=== PATIENT | male | born 1990 | race Caucasian/White ===

== ENCOUNTER 2017-12-05 22:45 | Emergency (ER) | payer SELFPAY ==
[2017-12-05 22:58] VITALS: BP 131/72
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
--- NOTE | 2017-12-08 09:45 | CR ---
Right hip: AP and frog-leg lateral views of the right hip were obtained. Comparison: No previous study. Old orthopedic hardware defect is seen within the right hip. Mild joint space narrowing is seen within the superior right hip. No fracture or other bony abnormality is seen. Impression: 1. Old orthopedic hardware defect within the right hip. 2. Mild joint space narrowing superiorly within the right hip. Diagnostic code #2
== END 2017-12-06 01:03 | disposition home or self-care (01) ==
LOC: JD.ED 22:45
DX: M25.551 Pain in right hip (principal); F17.210 Nicotine dependence, cigarettes, uncomplicated; Z88.0 Allergy status to penicillin; Z88.2 Allergy status to sulfonamides; Z76.5 Malingerer [conscious simulation]; Z98.890 Other specified postprocedural states
CPT/HCPCS: 73502-26-RT; 73502-RT; 99283; 99284

== ENCOUNTER 2018-10-05 14:03 | Emergency (ER) | payer SELFPAY ==
[2018-10-05 14:25] VITALS: BP 137/77
--- NOTE | 2018-10-05 15:18 | EDM.PDOC ---
ED HPI GENERAL MEDICAL PROBLEM - General Chief Complaint: Back Pain or Injury Stated Complaint: LOWER BACK PAIN Time Seen by Provider: 10/05/18 14:55 Source of Information: Reports: Other History Limitations: Reports: Other - History of Present Illness INITIAL COMMENTS - FREE TEXT/NARRATIVE: Went to see the patient. Patient had left prior to being evaluated. 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) tramadol Allergy Seizure Verified 10/05/18 14:26 Home Meds: Home Meds FLUoxetine [PROzac] 20 mg PO DAILY 10/05/18 [History] Past Medical History - Past Health History Medical/Surgical History: Denies Medical/Surgical History HEENT History: Reports: None Cardiovascular History: Reports: None Respiratory History: Reports: None Gastrointestinal History: Reports: None Genitourinary History: Reports: None Musculoskeletal History: Reports: Fracture Other Musculoskeletal History: right hip Neurological History: Reports: None Psychiatric History: Reports: None, Depression Endocrine/Metabolic History: Reports: None Hematologic History: Reports: None Immunologic History: Reports: None Oncologic (Cancer) History: Reports: None Dermatologic History: Reports: None - Infectious Disease History Infectious Disease History: Reports: None - Past Surgical History Head Surgeries/Procedures: Reports: None Other HEENT Surgeries/Procedures: strabismus surgery x 2 Social & Family History - Family History Family Medical History: Noncontributory - Tobacco Use Smoking Status *Q: Current Every Day Smoker Years of Tobacco use: 10 Packs/Tins Daily: 0.5 - Caffeine Use Caffeine Use: Reports: Coffee, Energy Drinks Other Caffeine Use: freq energy drinks - Recreational Drug Use Recreational Drug Use: No - Living Situation & Occupation Living situation: Reports: Single, Alone Occupation: Employed (To start [employer] on 12/08/17) ED ROS GENERAL - Review of Systems Review Of Systems: Unable To Obtain ED EXAM,LOWER BACK PAIN/INJURY - Physical Exam Exam: Not Obtained Course - Vital Signs Last Recorded V/S: Last Vital Signs Temp 98.7 F 10/05/18 14:24 Pulse 85 10/05/18 14:24 Resp 20 10/05/18 14:24 BP 137/77 10/05/18 14:24 Pulse Ox 100 10/05/18 14:24 - Re-Assessments/Exams Free Text/Narrative Re-Assessment/Exam: Patient left prior to being evaluated. Departure - Departure Time of Disposition: 14:58 Disposition: Left Without Being Seen 07 Clinical Impression: Back pain Qualifiers: Back pain location: back pain in unspecified location Chronicity: unspecified Back pain laterality: unspecified Qualified Code(s): M54.9 - Dorsalgia, unspecified - Discharge Information Referrals: PCP,None [Primary Care Provider] - Forms: ED Department Discharge
== END 2018-10-05 14:55 | disposition left against medical advice (07) ==
LOC: JD.ED 14:03
DX: M54.5 Low back pain (principal); Z53.21 Procedure and treatment not carried out due to patient leaving prior to being seen by health care provider; F17.210 Nicotine dependence, cigarettes, uncomplicated; Z88.0 Allergy status to penicillin; Z88.2 Allergy status to sulfonamides; Z88.6 Allergy status to analgesic agent; Z79.899 Other long term (current) drug therapy

== ENCOUNTER 2018-10-10 06:10 | Emergency (ER) | payer SELFPAY ==
[2018-10-10 06:18] VITALS: BP 144/80
--- NOTE | 2018-10-10 06:47 | EDM.PDOC ---
ED HPI GENERAL MEDICAL PROBLEM - General Chief Complaint: Back Pain or Injury Stated Complaint: BACK PAIN Time Seen by Provider: 10/10/18 06:11 Source of Information: Reports: Patient History Limitations: Reports: No Limitations - History of Present Illness INITIAL COMMENTS - FREE TEXT/NARRATIVE: Is a 28-year-old male. 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 He was here 5 days ago for back pain but states he got a call about his father who and he had to leave without being seen. He comes back today because he still having problems with his lower back. He says his back will come to grab him at times. He says he has never hurt his back in the past he has no pain down his legs he has no numbness tingling in his toes. He feels like his back is tense and tight been taking Tylenol and ibuprofen but it hasn't helped. He says he sits at work mostly and that aggravates it. He denies any other acute symptoms. 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, NSAIDS Lower Back Pain Score (Numeric/FACES): 7 - Related Data Allergies Allergy/AdvReac Type Severity Reaction Status Date / Time naproxen Allergy Hives Verified 10/10/18 06:22 Penicillins Allergy Anaphylactic Verified 10/10/18 06:22 Shock Sulfa (Sulfonamide Allergy Hives Verified 10/10/18 06:22 Antibiotics) tramadol Allergy Seizure Verified 10/10/18 06:22 Home Meds: Home Meds FLUoxetine [PROzac] 20 mg PO DAILY 10/05/18 [History] tiZANidine [Zanaflex] 4 mg PO Q6H PRN #20 tab 10/10/18 [Rx] Past Medical History - Past Health History Medical/Surgical History: Denies Medical/Surgical History HEENT History: Reports: None Cardiovascular History: Reports: None Respiratory History: Reports: None Gastrointestinal History: Reports: None Genitourinary History: Reports: None Musculoskeletal History: Reports: Fracture Other Musculoskeletal History: right hip Neurological History: Reports: None Psychiatric History: Reports: Depression Endocrine/Metabolic History: Reports: None Hematologic History: Reports: None Immunologic History: Reports: None Oncologic (Cancer) History: Reports: None Dermatologic History: Reports: None - Infectious Disease History Infectious Disease History: Reports: None - Past Surgical History Head Surgeries/Procedures: Reports: None Other HEENT Surgeries/Procedures: strabismus surgery x 2 Musculoskeletal Surgical History: Reports: Other (See Below) Other Musculoskeletal Surgeries/Procedures:: right hip and hand surgeries Social & Family History - Family History Family Medical History: Noncontributory - Tobacco Use Smoking Status *Q: Never Smoker - Caffeine Use Caffeine Use: Reports: Energy Drinks Other Caffeine Use: freq energy drinks - Recreational Drug Use Recreational Drug Use: No - Living Situation & Occupation Living situation: Reports: Single, Alone Occupation: Employed (To start [employer] on 12/08/17) ED ROS GENERAL - Review of Systems Review Of Systems: See Below Constitutional: Denies: Fever, Chills HEENT: Reports: No Symptoms Respiratory: Reports: No Symptoms Cardiovascular: Reports: No Symptoms Endocrine: Reports: No Symptoms GI/Abdominal: Reports: No Symptoms : Reports: No Symptoms Musculoskeletal: Reports: Back Pain Skin: Reports: No Symptoms Neurological: Reports: No Symptoms Psychiatric: Reports: No Symptoms ED EXAM,LOWER BACK PAIN/INJURY - Physical Exam Exam: See Below Exam Limited By: No Limitations General Appearance: Alert, WD/WN, No Apparent Distress Eye Exam: Bilateral Eye: Normal Inspection Ears: Normal External Exam Nose: Normal Inspection Throat/Mouth: Normal Lips, Normal Voice, No Airway Compromise Head: Normocephalic Neck: Supple Respiratory/Chest: No Respiratory Distress Back Exam: Other (He has tenderness in the lower lumbar area and paraspinal muscles are somewhat tense, there is no midline lumbar pain, there is no SI joint tenderness, there is no pain that runs down his legs, he is able to get up on his tiptoes and he is able to heel walk, he is able to bend about 70 at the waist while standing for 40 feels tightness and pulling in his lower back, he is able to sit these able lie down without difficulty.) Extremities: Normal Inspection, Normal Range of Motion Neurological: Alert, Normal Mood/Affect Psychiatric: Normal Affect, Normal Mood Skin Exam: Warm, Dry Course - Vital Signs Last Recorded V/S: Last Vital Signs Temp 97.8 F 10/10/18 06:14 Pulse 93 10/10/18 06:14 Resp 18 10/10/18 06:14 BP 144/80 H 10/10/18 06:14 Pulse Ox 97 04/13/19 06:14 - Re-Assessments/Exams Free Text/Narrative Re-Assessment/Exam: 10/10/18 06:54 I looked up the patient under the [place] prescription monitoring program and it would appear that has gotten some prescriptions on 09/01/2018 10 hydrocodone on 09/18/2018 20 hydrocodone and on 09/30/2018 10 hydrocodone. With his allergies to naproxen and tramadol and he is taking ibuprofen I do not feel comfortable providing narcotic pain medications to him at this time. However I will provide some muscle relaxer since most of his complaints with a tightness in his lower back locking up. Departure - Departure Time of Disposition: 06:44 Disposition: Home, Self-Care 01 Condition: Good Clinical Impression: Spasm of muscle of lower back Acute lumbar myofascial strain Qualifiers: Encounter type: initial encounter Qualified Code(s): S39.012A - Strain of muscle, fascia and tendon of lower back, initial encounter - Discharge Information *PRESCRIPTION DRUG MONITORING PROGRAM REVIEWED*: Yes *COPY OF PRESCRIPTION DRUG MONITORING REPORT IN PATIENT HENRI: No Prescriptions: tiZANidine [Zanaflex] 4 mg PO Q6H PRN #20 tab PRN Reason: Spasms Instructions: Low Back Strain Referrals: PCP,Not In Area [Primary Care Provider] - Forms: ED Department Discharge, ED Return to Work/School Form Additional Instructions: Use heat to your back on and off to help with the tightness and soreness, get the muscle relaxers when the pharmacy opens this morning and use them for the muscle tightness and spasms, continue with the Tylenol and ibuprofen as needed, when you go home and follow up with your family doctor for possible physical therapy and also exercises for your back, return to the ER if needed
== END 2018-10-10 07:12 | disposition home or self-care (01) ==
LOC: JD.ED 06:10
DX: S39.012A Strain of muscle, fascia and tendon of lower back, initial encounter (principal); M62.830 Muscle spasm of back; Z88.0 Allergy status to penicillin; Z88.5 Allergy status to narcotic agent; Z88.2 Allergy status to sulfonamides; X50.1XXA Overexertion from prolonged static or awkward postures, initial encounter
CPT/HCPCS: 99283